=== PATIENT | female | born 1990 | race Caucasian/White ===

== ENCOUNTER → 2016-07-07 | Outpatient (REF) ==
[~2016-07-07] MED LIST: FIORICET 325 MG1 TA1 PO; FLEXERIL 1010 MG/TAB PO
== END ==
LOC: WSOH 10:16
DX: Z02.1 Encounter for pre-employment examination (principal)

== ENCOUNTER 2016-07-24 12:54 | Emergency (ER) | payer OTHER ==
[~2016-07-24] VITALS: Ht 160 cm; Wt 65.9 kg
[2016-07-24 12:56] VITALS: BP 140/93; TEMP 98
[2016-07-24] MEDS ORDERED: FIORICET 325 MG1 TA1 PO (12:59)
[2016-07-24] MEDS ORDERED: FLEXERIL 1010 MG/TAB PO (14:51)
[2016-07-24 14:55] VITALS: PULSE 86
== END 2016-07-24 14:56 | disposition home or self-care (01) ==
LOC: COL.ER 12:54
DX: S06.0X0A Concussion without loss of consciousness, initial encounter (principal); S16.1XXA Strain of muscle, fascia and tendon at neck level, initial encounter; V43.52XA Car driver injured in collision with other type car in traffic accident, initial encounter; Y92.410 Unspecified street and highway as the place of occurrence of the external cause